=== PATIENT | male | born 1965 ===

== ENCOUNTER 2019-08-27 08:05 | Inpatient (IN) | payer OTHER | END 2019-09-08 11:48 | disposition home or self-care (01) | DRG 708 | LOC: O/R 08:15 → SURH 09-06 08:15 → O/R 09-06 09:07 → SURH 09-06 11:30 | PROVIDERS: ADMIT Urology | PROC: 07BC0ZX Excision of Pelvis Lymphatic, Open Approach, Diagnostic (ICD-10-PCS; 2019-09-06) | PROC: 0VT00ZZ Resection of Prostate, Open Approach (ICD-10-PCS; principal; 2019-09-06 11:30) | DX: C61 Malignant neoplasm of prostate (principal); R97.21 Rising PSA following treatment for malignant neoplasm of prostate; R59.0 Localized enlarged lymph nodes ==